=== PATIENT | male | born 1990 | race African-American/Black ===

== ENCOUNTER 2017-08-27 13:59 | Emergency (ER) | payer MEDICAID ==
[2017-08-27] MEDS ORDERED: Ibuprofen TAB* 800 MG PO ONE (15:31)
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
[2017-08-27 16:14] VITALS: BP 122/82
== END 2017-08-27 16:10 | disposition home or self-care (01) ==
LOC: ED 13:59
DX: S00.93XA Contusion of unspecified part of head, initial encounter (principal); S09.90XA Unspecified injury of head, initial encounter; Y09 Assault by unspecified means; Y93.9 Activity, unspecified; Y92.9 Unspecified place or not applicable
CPT/HCPCS: 70486; 99282

== ENCOUNTER 2019-04-12 12:00 | Emergency (ER) | payer SELFPAY ==
[2019-04-12 12:44] VITALS: BP 99/64
--- NOTE | 2019-04-12 13:43 | UC ---
Abdominal Pain Male HPI - HPI Summary HPI Summary: Patient is a 28yo male presenting with burning with urination x2 days. Patient notes constant "discomfort" that becomes worse with urination. Also notes " white discharge" from his penis that happened this morning, prompting him to come in. Denies hemturia. Denies malodorous urine. Denies skin lesions and rash. Denies itching. Denies scrotal and testicular pain. Denies abdominal pain. Denies n/v/d. Denies fever and chills. Denies new partner. States he has been having unprotected sex with the same partner for 6 months, who has no symptoms to his knowledge. He states he was not concerned for STI until discharge began today. Denies anything like this in the past. - History of Current Complaint Chief Complaint: UCAbdominalPain Stated Complaint: ABDOMINAL PAIN Hx Obtained From: Patient Onset/Duration: Gradual Onset, Lasting Days Severity Initially: Mild Severity Currently: Severe Pain Intensity: 8 Pain Scale Used: 0-10 Numeric - Allergies/Home Medications Allergies/Adverse Reactions: Allergies Allergy/AdvReac Type Severity Reaction Status Date / Time No Known Allergies Allergy Verified 04/12/19 12:44 PMH/Surg Hx/FS Hx/Imm Hx Previously Healthy: Yes Other History Of: Negative For: Anticoagulant Therapy - Surgical History Surgical History: None - Family History Known Family History: Positive: None - Social History Alcohol Use: None Substance Use Type: None Smoking Status (MU): Never Smoked Tobacco Review of Systems All Other Systems Reviewed And Are Negative: Yes Constitutional: Positive: Negative. Negative: Fever, Chills Skin: Positive: Negative, Other. Negative: Rash Respiratory: Positive: Negative Cardiovascular: Positive: Negative Gastrointestinal: Positive: Negative. Negative: Abdominal Pain, Vomiting, Diarrhea, Nausea Genitourinary: Positive: Dysuria, Vaginal/Penile Burning - with urination, Vaginal/Penile Discharge, Vaginal/Penile Tenderness. Negative: Hematuria, Frequency, Urgency, Vaginal/Penile Itching, Ulceration/Lesion, Abnormal Bleeding Musculoskeletal: Positive: Negative Neurological: Positive: Negative Physical Exam Triage Information Reviewed: Yes Appearance: Well-Appearing, No Pain Distress, Well-Nourished Vital Signs: Initial Vital Signs Temp 98.5 F 04/12/19 12:37 Pulse 78 04/12/19 12:37 Resp 16 04/12/19 12:37 BP 99/64 04/12/19 12:37 Pulse Ox 99 04/12/19 12:37 Lab Results 04/12/19 Range/Units 14:01 POC Urine Color Yellow POC Urine Clarity Clear POC Urine pH 7.5 (5-9) POC Ur Specif [place] 1.020 (1.010-1.030) POC Urine Protein Negative (Negative) POC Ur Glucose (UA) Negative (Negative) POC Urine Ketones Negative (Negative) POC Urine Blood Negative (Negative) POC Urine Nitrite Negative (Negative) POC Urine Bilirubin Negative (Negative) POC Urine Urobilinogen 1.0 (Negative) POC U Leukocyte Esteras Trace A (Negative) Vital Signs Reviewed: Yes Eyes: Positive: Conjunctiva Clear ENT Exam: Normal ENT: Positive: Normal ENT inspection, Hearing grossly normal, Pharynx normal Neck exam: Normal Neck: Positive: Supple Respiratory Exam: Normal Respiratory: Positive: Lungs clear, Normal breath sounds, No respiratory distress Cardiovascular Exam: Normal Cardiovascular: Positive: RRR Abdominal Exam: Normal Abdomen Description: Positive: Nontender, Soft. Negative: CVA Tenderness (R), CVA Tenderness (L) Bowel Sounds: Positive: Present Male Genital Exam: Positive: Normal Genitalia. Negative: Lesions, Scrotum Tenderness (R), Scrotum Tenderness (L), Testicular Tenderness (R), Testicular Tenderness (L), Urethral Discharge Neurological: Positive: Alert Psychological: Positive: Age Appropriate Behavior Abd Pain Male Course/Dx - Course Course Of Treatment: Discussed possible UTI vs STI source of symptoms. Given options, patient voiced desire to be treated for gonorrhea and chlamydia today. He received rocephin and azithromycin here. Urine was also sent for culture and G/C. I informed him that he would be notified with positive results. Instructed to follow up if symptoms persist. Patient voiced understanding and agreed with treatment plan. - Differential Dx/Clinical Impression Differential Diagnosis/HQI/PQRI: Prostatitis, Urinary Tract Infection, Other - gonorrhea, chlamydia Provider Diagnosis: Burning with urination, Abnormal penile discharge Discharge ED - Sign-Out/Discharge Documenting (check all that apply): Patient Departure All imaging exams completed and their final reports reviewed: No Studies - Discharge Plan Condition: Stable Disposition: HOME Patient Education Materials: Sexually Transmitted Diseases (ED), Safe Sex (ED) , Urinary Tract Infection in Men (ED) Referrals: Care [facility] [Outside] - If Needed [facility] [place] [facility] [place]Outside] - If Needed Additional Instructions: As discussed, you were treated with one-time doses of antibiotics for gonorrhea and chlamydia. Your urine was also sent for culture. You will be notified with any positive results. You may also take Azo over the counter for relief of burning/pain. Follow up with the [facility] or Physician Referral if symptoms persist. - Billing Disposition and Condition Condition: STABLE Disposition: Home
[2019-04-12] MEDS ORDERED: Lidocaine 1% MPF ** 5 ML VIAL IM ONE (14:21)
[2019-04-12] MEDS ORDERED: cefTRIAXone VIAL(*) 250 MG VIAL IM ONE (14:21)
[2019-04-12] MEDS ORDERED: Azithromycin TAB* 250 MG PO ONE (14:22)
[2019-04-14 12:15] LABS: Chlamydia trachomatis NAA Positive (Negative)
[2019-04-14 15:29] LABS: Neisseria gonorrhoeae (GC) NAA Positive (Negative)
--- NOTE | 2019-04-14 16:09 | UC ---
- Progress Note Progress Note: + Chlamydia and also positive gonorrhea. He received ceftriaxone and azithromycin yesterday. Please advise him that he tested positive for both. Health deparment will contact. Course/Dx - Diagnoses Provider Diagnoses: Burning with urination, Abnormal penile discharge Discharge ED - Sign-Out/Discharge Documenting (check all that apply): Post-Discharge Follow Up All imaging exams completed and their final reports reviewed: No Studies - Discharge Plan Condition: Stable Disposition: HOME Patient Education Materials: Sexually Transmitted Diseases (ED), Safe Sex (ED) , Urinary Tract Infection in Men (ED) Referrals: [facility] [Outside] - If Needed [facility] [Outside] - If Needed Additional Instructions: As discussed, you were treated with one-time doses of antibiotics for gonorrhea and chlamydia. Your urine was also sent for culture. You will be notified with any positive results. You may also take Azo over the counter for relief of burning/pain. Follow up with the [facility] or Physician Referral if symptoms persist. - Billing Disposition and Condition Condition: STABLE Disposition: Home
== END 2019-04-12 14:58 | disposition home or self-care (01) ==
LOC: UCEAST 12:00
DX: R39.9 Unspecified symptoms and signs involving the genitourinary system (principal); R36.9 Urethral discharge, unspecified; R30.0 Dysuria
CPT/HCPCS: 81003; 87086; 87491; 87591; 96372; 99212; A9270-GY; G0463; J0696